=== PATIENT | female | born 1955 ===

== ENCOUNTER 2021-12-02 06:00 | Outpatient (RCR) | payer MEDICARE, SELFPAY | END 2021-12-19 23:59 | disposition home or self-care (01) | LOC: MPT 06:00 | PROVIDERS: Referring Provider Registered Nurse; Visit Provider Registered Nurse | DX: R10.2 Pelvic and perineal pain (principal); N39.41 Urge incontinence; R35.0 Frequency of micturition | CPT/HCPCS: 97161; 97530 ==